=== PATIENT | male | born 1995 | race African-American/Black ===

== ENCOUNTER → 2016-10-22 | Outpatient (CLI) | payer BC ==
--- NOTE | 2016-10-22 12:19 | DIAGNOSTIC IMAGING REPORT ---
RIGHT ANKLE MIN 3 VIEWS ROUTINE CLINICAL HISTORY: 21 years-old Male presenting with RIGHT ANKLE SPRAIN Right. TECHNIQUE: Frontal, oblique, and lateral views of the right ankle were obtained. COMPARISON: None. FINDINGS: Ankle mortise intact. No widening of the tibiofibular articulation. No acute fracture or malalignment. No radiopaque foreign body. Soft tissues grossly normal. IMPRESSION: 1. No acute osseous injury of the right ankle. Electronically signed by: Bradley Alvarez M.D. 10/22/2016 12:17 PM Dictated Date/Time: 10/22/2016 12:16 PM
== END | disposition home or self-care (01) ==
LOC: C.RAD1850 10:48
PROVIDERS: ATTEND Hospitalist
DX: S93.401A Sprain of unspecified ligament of right ankle, initial encounter (principal); X58.XXXA Exposure to other specified factors, initial encounter